=== PATIENT | female | born 1970 | race Caucasian/White ===

== ENCOUNTER 2024-08-09 06:08 | Day surgery (SDC) | payer OTHER, SELFPAY ==
[2024-08-09 06:15] VITALS: BMI 20.9
[2024-08-09 06:20] VITALS: BMI 20.9
[2024-08-09] MEDS: TYLENOL 1000 MG PO (06:35)
[2024-08-09 06:36] VITALS: BP 114/76
[2024-08-09 06:42] VITALS: BP 114/76
--- NOTE | 2024-08-09 06:52 | W.SUR.PREOP ---
Pre-Operative Surgical Note
-
I have examined this patient prior to the performance of the scheduled procedure.
The patient's condition is unchanged from the time of the current History and
Physical and the patient is able to undergo the scheduled procedure.
--- NOTE | 2024-08-09 08:03 | W.IMMPOSTOP ---
Addendum entered and electronically signed by Hunter Gillespie MD 08/09/24 08:09:
[id number]
Original Note:
Surgical Immed Post Op Note
-
Primary Surgeon: Jose Miguel
Assisting Surgeon: Tanja Lindsey PA-c
Pre-op Diagnosis: Ventral hernia
Post-op Diagnosis: Ventral hernia, 5 mm
Procedure Performed: Open ventral hernia repair
Anesthesia Type: MAC +1% lidocaine/0.25% Marcaine
Specimen / Cultures: None
Estimated Blood Loss: 2 mL
Complications: None immediate
Operative Findings: 5 mm ventral hernia containing preperitoneal fat/hernia sac. Fascial defect cleared. Closed primarily with interrupted 0 PDS suture.
updated postoperatively via phone call
[2024-08-09 08:05] VITALS: BP 95/59
[2024-08-09 08:15] VITALS: BP 100/67
[2024-08-09 08:30] VITALS: BP 101/68
[2024-08-09 08:45] VITALS: BP 103/78
== END 2024-08-09 08:59 | disposition home or self-care (01) ==
LOC: SDS 06:08
PROVIDERS: ATTENDING PHYSICIAN Surgery
DX: K43.9 Ventral hernia without obstruction or gangrene (principal)
CPT/HCPCS: 49591